=== PATIENT | male | born 1960 | race African-American/Black ===

== ENCOUNTER 2017-08-29 16:52 | Inpatient (IN) | payer MEDICARE, MEDICAID ==
[~2017-08-29] VITALS: Ht 172.7 cm; Wt 63.5 kg
[~2017-08-29 16:52] MED LIST: AZIT500T PO; CIPR-263 PO; EMTR1TAB6 PO; LEUC5TAB PO; LEVO25TA7 PO; METO25TA20 PO; PYRI25TA PO; SUCR1ORA6 GT; SULF500T6 PO
--- NOTE | 2017-08-29 16:53 | NUR ---
ADELIA FROM [facility] DT CHEST PAIN THE WHOLE DAY, 12/22, NON RADIATING. PATIENT NOTED TACHY ON TELE MONITOR. PATIENT IS AWAKE, IN NO DISTRESS. SKIN IS WARM TO TOUCH AND NON DIAPHORETIC. PATIENT IS AFEBRILE. CONNECTED PT TO TELE MONITOR. VSS
[2017-08-29] MEDS ORDERED: HYDROMORPHONE INJ 2 MG/ML DISP.SYRIN IV ONE (17:30)
[2017-08-29] MEDS ORDERED: IV NS 0.9% 500 ML BAG IV ONE (17:30)
--- NOTE | 2017-08-29 17:30 | NUR ---
UNABLE TO INSERT IV LINE. AWARE. TO CALL [facility]ICCLINE NURSES
--- NOTE | 2017-08-29 17:36 | NUR ---
UNABLE TO ESTABLISH PIV, CURTIS PARKS CALLED FOR A MIDLINE OR PICC LINE
[2017-08-29] MEDS ORDERED: EMTR1TAB12 PO (17:37)
[2017-08-29] MEDS ORDERED: DARU800T2 PO (17:37)
[2017-08-29] MEDS ORDERED: FURO-144 PO (17:37)
[2017-08-29] MEDS ORDERED: HYDR-3974 PO (17:37)
[2017-08-29] MEDS ORDERED: ASPI-1169 PO (17:37)
[2017-08-29] MEDS ORDERED: NA P133E RC (17:37)
[2017-08-29] MEDS ORDERED: PANT40TA2 PO (17:37)
[2017-08-29] MEDS ORDERED: BISA10SU8 RC (17:37)
[2017-08-29] MEDS ORDERED: ACET-868 PO (17:37)
[2017-08-29] MEDS ORDERED: LISI10TA5 PO (17:37)
[2017-08-29] MEDS ORDERED: CARV3.12 PO (17:37)
[2017-08-29] MEDS ORDERED: MAGN400O6 PO (17:37)
[2017-08-29] MEDS ORDERED: HYDROMORPHONE INJ 0.5 MG/0.5 ML SYRINGE ONE (18:17)
--- NOTE | 2017-08-29 18:43 | NUR ---
KIMBERLEY KUNZ, SISTER, , PLEASE CALL HER ON ANY CHANGE IN PT'S CONDITION.
--- NOTE | 2017-08-29 18:55 | NUR ---
MD SCHMIDT AT BEDSIDE FOR CENTRAL LINE INSERTION
--- NOTE | 2017-08-29 19:30 | NUR ---
PER DR HOWE, RIGHT FEMORAL TLC IS READY FOR USE. BLOOD SAMPLES TAKEN ASEPTICALLY AND NARENDRA FROM LAB PICKED UP SAMPLES.
[2017-08-29 19:40] LABS: BASOPHILS # (AUTO) 0.2 /CMM (0.0-0.2); BASOPHILS % (AUTO) 1.1 % (0.0-2.0); EOSINOPHILS % (AUTO) 0.1 % (0.0-6.0); HEMATOCRIT 38 % (39-51); HEMOGLOBIN 13.1 g/dL (13.5-17.5); LYMPHOCYTES # (AUTO) 1.3 /CMM (0.8-4.8); LYMPHOCYTES % (AUTO) 9.3 % (20.0-44.0); MEAN CORPUSCULAR HEMOGLOBIN 31 PG (26.0-33.0); MEAN CORPUSCULAR HGB CONC 35 g/dl (31.0-36.0); MEAN CORPUSCULAR VOLUME 90 fL (80-96); MONOCYTES # (AUTO) 0.1 /CMM (0.1-1.30); NEUTROPHILS # (AUTO) 12.5 /CMM (1.8-8.9); NEUTROPHILS % (AUTO) 88.5 % (43.0-81.0); PLATELET COUNT (AUTO) 228 /CMM (150-450); RDW COEFFICIENT OF VARIATION 17.1 (11.5-15.0); RED BLOOD CELL COUNT(AUTO) 4.16 MIL/uL (4.5-6.0); WHITE BLOOD COUNT (AUTO) 14.1 K/uL (4.3-11.0)
[2017-08-29 19:47] LABS: CALCIUM, SERUM 8.7 mg/dL (8.5-10.1); CREATININE 2.5 mg/dL (0.6-1.3); POTASSIUM 3.7 mmol/L (3.5-5.1)
[2017-08-29 19:50] LABS: INR 1.01 (0.85-1.15)
[2017-08-29 19:56] LABS: TROPONIN I 0.286 ng/mL (0.00-0.056)
[2017-08-29] MEDS ORDERED: PIPERACILLIN /TAZOBACTAM 3.375 G VIAL IV ONE (19:59)
[2017-08-29] MEDS ORDERED: VANCOMYCIN 1 GM VIAL ONE ×2 (19:59→20:37)
[2017-08-29] MEDS ORDERED: PIPERACILLIN /TAZOBACTAM 3.375 G in IV D5W 50 ML IV ONE (20:00)
[2017-08-29] MEDS ORDERED: VANCOMYCIN 1 GM in IV D5W 250 ML IV ONE (20:00)
[2017-08-29] MEDS ORDERED: IV NS 0.9% 1,000 ML BAG IV ONE (20:00)
[2017-08-29 20:25] LABS: ALANINE AMINOTRANSFERASE 19 U/L (12-78); ALBUMIN 3.2 g/dL (3.4-5.0); ALKALINE PHOSPHATASE 135 U/L (46-116); ASPARTATE AMINOTRANSFERASE 37 U/L (15-37); BILIRUBIN,DIRECT 0.2 mg/dL (0.0-0.2); BILIRUBIN,TOTAL 0.5 mg/dL (0.2-1.0); TOTAL PROTEIN, SERUM 7.3 g/dL (6.4-8.2)
[2017-08-29] MEDS ORDERED: ASPIRIN 81 MG TAB.CHEW PO ONE (20:30)
[2017-08-29] MEDS ORDERED: NOREPINEPHRINE 4 MG/4 ML AMPUL IV ONE (20:37)
--- NOTE | 2017-08-29 20:40 | NUR ---
AFTER NS BOLUS WITH USE OF PRESSURE BAG, BP IS 88/45. NOTIFIED DR WOODS. DR DARLING ASSESSED PATIENT, AND RECEIVED ORDERS TO START LEVOPHED DRIP.
[2017-08-29] MEDS ORDERED: ASPIRIN 81 MG TAB.CHEW ONE (20:44)
[2017-08-29] MEDS ORDERED: NOREPINEPHRINE 8 MG in IV D5W 500 ML IV PRN (21:00)
[2017-08-29 21:18] LABS: APPEARANCE,URINE Slightly Cloudy (CLEAR); BILIRUBIN,URINE Negative (NEGATIVE); BLOOD, URINE Trace-lysed Ery/uL (NEGATIVE); COLOR,URINE Yellow (YELLOW); KETONES,URINE Negative (NEGATIVE); LEUKOCYTE ESTERASE ,URINE Trace (NEGATIVE); NITRITE, URINE Negative (NEGATIVE); PROTEIN,URINE 100 mg/dl (NEGATIVE); UGLUCOSE Negative (NEGATIVE); UROBILINOGEN,URINE 0.2 EU/dL (0.2)
--- NOTE | 2017-08-29 21:18 | NUR ---
back from ct.
[2017-08-29 21:29] LABS: BACTERIA,URINE Few /HPF (None Seen); HYALINE CASTS, URINE Rare /LPF (None Seen); MUCUS,URINE Rare /LPF (None Seen); SQUAMOUS EPITHELIAL CELL,UR Moderate /HPF (None Seen)
[2017-08-29] MEDS ORDERED: IV NS 0.9% 1,000 ML IV PRN (22:11)
[2017-08-29] MEDS ORDERED: MAGNESIUM HYDROXIDE 30 ML UDC PO PRN (22:30)
[2017-08-29] MEDS ORDERED: MAG HYDROX/AL HYDROX/SIMETH 30 ML UDC PO PRN (22:30)
[2017-08-29] MEDS ORDERED: HEPARIN INFUSION/D5W 500 ML IV PRN (22:30)
[2017-08-29] MEDS ORDERED: NA PHOS,M-B/NA PHOS,DI-BA 1 EA ENEMA RC PRN (22:30)
[2017-08-29] MEDS ORDERED: ONDANSETRON HCL/PF 4 MG/2 ML VIAL IVP PRN (22:30)
[2017-08-29] MEDS ORDERED: ACETAMINOPHEN 325 MG TABLET PO PRN (22:30)
[2017-08-29] MEDS ORDERED: HYDROCODONE/APAP 5/325MG 1 EACH TABLET PO PRN (22:30)
[2017-08-29] MEDS ORDERED: BISACODYL SUPP (10 MG) 10 MG/SUPP.RECT SUPP.RECT RC PRN (22:30)
[2017-08-29] MEDS ORDERED: Z GUARD REMEDY 2 OZ OINT TP PRN (22:30)
--- NOTE | 2017-08-29 23:13 | NUR ---
ICU 257
--- NOTE | 2017-08-29 23:18 | NUR ---
REPORT GIVEN TO MOSES CHEN FOR ICU ADMISSION AND SEBASTIEN.
--- NOTE | 2017-08-29 23:45 | NUR ---
ICU/RN- ADMITTED THIS 57 Y/O MALE FROM ER BY CHRISTELLE, ACCOMPANIED BY ER STAFF, ON CONTINUOUS EKG MONITORING.NURSING DIAGNOSIS:INFECTION R/T DIAGNOSIS OF SEPSIS, ROUTINE ICU ADMISSION CARE INITIATED. ON LEVOPHED DRIP AT 3MCG/MIN. PER PROTOCOL. BP-89/44, HR-109/MIN, , BREATHING SPONTANEOUSLY +TO ROOM AIR W/ O2 SUPPORT OF 2L/NC, SATS.-97%.
--- NOTE | 2017-08-29 23:51 | NUR ---
TRANSFERRED PATIENT TO ICU FLOOR VIA ALS PROTOCOL, NO INCIDENT NOTED.
[2017-08-30] VITALS (72 sets, daily range): BP systolic 55–168; BP diastolic 24–113
--- NOTE | 2017-08-30 | NUR ---
ICU/RN- SPOKE TO ACNP Chaka ROWLEY, REGARDING VQ SCAN, REGARDING PT. STABLE TO GO FOR THE PROCEDURE. WILL RADIAL DRILL OPERATOR PT. TO CVPMPER PROTOCOL.
[2017-08-30] MEDS ORDERED: HEPARIN INFUSION/D5W 500 ML IV ONE (00:16)
--- NOTE | 2017-08-30 00:30 | NUR ---
ICU/RN- DISTAL PORT OF RIGHT FEMORAL TL HOOKED UP TO PRESSURIZED NS 500ML W/ 300HG, W/ GOOD WAVEFORM, CALIBRATED AND ZEROED W/ INITIAL READING OF 7, DOCUMENTED.
--- NOTE | 2017-08-30 00:41 | NUR ---
ICU/RN- ABGS DONE BY RT W/ RESULTS PH-7.41, PCO2-28.2,P02-101.7,HCO3-17.5, DOCUMENTED, WILL CONTINUE TO MONITOR PT. CLOSELY.
--- NOTE | 2017-08-30 00:51 | NUR ---
ICU/RN- HEPARIN DRIP INIYIATED PER [facility] PROTOCOL PER C ROWLEY ACNP ORDER. WILL MONITOR PT. PTT PER PROTOCOL.
[2017-08-30 00:54] LABS: ABG BASE EXCESS -5.8 mmol/L; ABG PCO2 28.2 mmHg (35.0-45.0); ABG PO2 101.7 mmHg (75.0-100.0); AaDO2 64.7 mmHg; COHb 0.3 % (0.5-1.5); MetHb 0.4 % (0.0-1.5); O2Hb 96.3 % (94.0-97.0); SITE, ABG Left Radial; VENT MODE, BG 2L NC
[2017-08-30] MEDS ORDERED: HEPARIN SODIUM, PORCINE 5000 UNITS/1 ML VIAL ONE (00:59)
[2017-08-30] MEDS ORDERED: HEPARIN SODIUM, PORCINE 5000 UNITS/1 ML VIAL IV ONE (01:00)
[2017-08-30] MEDS ORDERED: HEPARIN SODIUM, PORCINE 1000 UNIT/1 ML VIAL IV ONE (01:00)
[2017-08-30] MEDS: MORPHINE SULFATE INJ 2 MG/ML DISP.SYRIN IV PRN ×4 (01:08→08:12)
--- NOTE | 2017-08-30 01:22 | NUR ---
ICU/RN- PT. TRANSPORTED TO RADIOLOGY FOR LUNG PERFUSION SCAN PER ACLS PROTOCOL TO R/O PE, ON CONTINUOUS EKG MONITORING, ACCOMPANIED BY RN,SAFETY AND SECURITY MANAGER AND STRAND BUNCHER FINE WIRE.
--- NOTE | 2017-08-30 02:35 | NUR ---
ICU/RN- ABLE TO DO THE VENTILATION PART OF THE VQ SCAN, NOT THE PERFUSION PART, PT. STARTED, GETTING PANICKY, SCREMING AND HITTING RN AND TECH IN SPITE OF EXPLAINING THE IMPORTANCE OF THE VQ SCAN,PT. AGREED TO DO THE PERFUSION PART LATER IN THE DAY.PT. TRANSPORTED BACK TO ROOM PER PROTOCOL.
[2017-08-30] MEDS ORDERED: PIPERACILLIN /TAZOBACTAM 2.25 G VIAL IV ONE (05:49)
[2017-08-30] MEDS: PIPERACILLIN /TAZOBACTAM 2.255 G in IV D5W 50 ML IV SCH ×4 (06:13→23:29)
--- NOTE | 2017-08-30 06:15 | NUR ---
ICU/RN- CALM, ASLEEP, AROUSABLE, DENIES ANY DISCOMFORT, REMAINS ON LEVOPHED DRIP, CONTINUE TO WEAN TOLERATED.
[2017-08-30] MEDS ORDERED: NOREPINEPHRINE 8 MG in IV D5W 500 ML IV PRN (06:30)
[2017-08-30 07:01] LABS: BASOPHILS % (AUTO) 0.2 % (0.0-2.0); HEMATOCRIT 31 % (39-51); HEMOGLOBIN 10.5 g/dL (13.5-17.5); LYMPHOCYTES # (AUTO) 1.5 /CMM (0.8-4.8); LYMPHOCYTES % (AUTO) 12.6 % (20.0-44.0); MEAN CORPUSCULAR HEMOGLOBIN 32 PG (26.0-33.0); MEAN CORPUSCULAR HGB CONC 34 g/dl (31.0-36.0); MEAN CORPUSCULAR VOLUME 92 fL (80-96); MONOCYTES # (AUTO) 0.7 /CMM (0.1-1.30); MONOCYTES % (AUTO) 5.6 % (2.0-12.0); NEUTROPHILS # (AUTO) 9.9 /CMM (1.8-8.9); NEUTROPHILS % (AUTO) 81.6 % (43.0-81.0); PLATELET COUNT (AUTO) 158 /CMM (150-450); RDW COEFFICIENT OF VARIATION 18.5 (11.5-15.0); RED BLOOD CELL COUNT(AUTO) 3.33 MIL/uL (4.5-6.0); WHITE BLOOD COUNT (AUTO) 12.2 K/uL (4.3-11.0)
[2017-08-30 07:15] LABS: CALCIUM, SERUM 7.6 mg/dL (8.5-10.1); CREATININE 1.7 mg/dL (0.6-1.3); MAGNESIUM 1.4 mg/dL (1.8-2.4); PHOSPHORUS 3.9 mg/dL (2.5-4.9); POTASSIUM 3.3 mmol/L (3.5-5.1)
[2017-08-30 07:22] LABS: TROPONIN I 0.161 ng/mL (0.00-0.056)
[2017-08-30 07:27] LABS: THYROID STIMULATING HORMONE 0.886 uIU/mL (0.358-3.74)
[2017-08-30] MEDS: ASPIRIN 81 MG TAB.CHEW PO SCH (08:11)
[2017-08-30] MEDS ORDERED: FEE PK DOSING 1 MIN EA MC ONE (08:19)
--- NOTE | 2017-08-30 08:45 | NUR ---
ICU/RN: Dr Chan at bedside; updated on overnight events, pt on RA denies SOB, c/o CP 8-04/23 sternal and non-radiating asking for prn morphine around the clock. Pt refuses perfusion scan, PTT results reece DELACRUZ with orders to DC heparin drip. 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 Pt in agreement with plan. rural sociologist aware.
[2017-08-30] MEDS: EMTRICITABINE/TENOFOVIR 1 TAB PO SCH ×2 (09:00→17:13)
[2017-08-30] MEDS ORDERED: PANTOPRAZOLE 40 MG VIAL IV SCH (09:00)
[2017-08-30] MEDS: POTASSIUM CHLORIDE 20 MEQ TAB.PRT.SR PO SCH ×2 (10:08→10:39)
[2017-08-30] MEDS ORDERED: ACETAMINOPHEN 325 MG TABLET PO SCH (10:30)
[2017-08-30] MEDS: ACETAMINOPHEN 325 MG TABLET PO SCH ×3 (10:39→23:29)
[2017-08-30] MEDS ORDERED: POTASSIUM CHLORIDE 20 MEQ TAB.PRT.SR PO SCH (11:00)
[2017-08-30] MEDS: Magnesium 1GM/D5W 100ML PREMIX 100 ML IV SCH ×2 (11:44→12:56)
[2017-08-30] MEDS: VANCOMYCIN 0.75 GM in IV D5W 250 ML IV SCH ×2 (11:44→20:18)
[2017-08-30] MEDS: oxyCODONE IR immediate release 5 MG PO PRN (12:24)
--- NOTE | 2017-08-30 16:00 | NUR ---
ICU/RN: Pt's sister at bedside; per pt, "she will garbage pick up man my meds from [facility] and bring it tonight or early tomorrow morning at the latest."
[2017-08-30] MEDS: IV NS 0.9% 1,000 ML IV PRN (16:07)
--- NOTE | 2017-08-30 18:00 | NUR ---
ICU/RN: Pt requested prune juice with dinner; pt c/o constipation. SBP within parameters. Will cont to monitor pt
--- NOTE | 2017-08-30 19:30 | NUR ---
WARD SERVICE SUPERVISOR: RECEIVED PT A/O X 3. ON ROOM AIR WT NO ACUTE DISTRESS. NO C/O PAIN OR EVIDENCE OF DISCOMFORT AT THIS TIME. SR ON BOX REPAIRER. RIGHT FEMORAL TLC INFUSING NS AT 125ML/HR AND LEVOPHED AT 2MCG/MIN FOR BP SUPPORT. HOB ELEVATED AT 35 DEGREES. SAFETY PRECAUTION NOTED AT ALL TIMES. CALL LIGHT KEPT WITHIN REACH. WILL CONTINUE TO MONITOR.
[2017-08-31] VITALS (36 sets, daily range): BP systolic 85–188; BP diastolic 23–127
[2017-08-31] MEDS: oxyCODONE IR immediate release 5 MG PO PRN ×3 (01:58→20:06)
[2017-08-31] MEDS: IV NS 0.9% 1,000 ML IV PRN (02:30)
[2017-08-31] MEDS: IV NS 0.9% 500 ML BAG IV PRN (04:14)
[2017-08-31 05:28] LABS: BASOPHILS % (AUTO) 0.4 % (0.0-2.0); EOSINOPHILS % (AUTO) 0.4 % (0.0-6.0); HEMATOCRIT 26 % (39-51); HEMOGLOBIN 8.7 g/dL (13.5-17.5); LYMPHOCYTES # (AUTO) 1.3 /CMM (0.8-4.8); LYMPHOCYTES % (AUTO) 20.3 % (20.0-44.0); MEAN CORPUSCULAR HEMOGLOBIN 32 PG (26.0-33.0); MEAN CORPUSCULAR HGB CONC 34 g/dl (31.0-36.0); MEAN CORPUSCULAR VOLUME 92 fL (80-96); MONOCYTES # (AUTO) 0.3 /CMM (0.1-1.30); MONOCYTES % (AUTO) 4.7 % (2.0-12.0); NEUTROPHILS # (AUTO) 4.9 /CMM (1.8-8.9); NEUTROPHILS % (AUTO) 74.2 % (43.0-81.0); PLATELET COUNT (AUTO) 121 /CMM (150-450); RDW COEFFICIENT OF VARIATION 18.7 (11.5-15.0); RED BLOOD CELL COUNT(AUTO) 2.78 MIL/uL (4.5-6.0); WHITE BLOOD COUNT (AUTO) 6.6 K/uL (4.3-11.0)
[2017-08-31 05:33] LABS: ALBUMIN 2.3 g/dL (3.4-5.0); BILIRUBIN,TOTAL 0.2 mg/dL (0.2-1.0); CALCIUM, SERUM 8.1 mg/dL (8.5-10.1); CREATININE 1.1 mg/dL (0.6-1.3); PHOSPHORUS 2.5 mg/dL (2.5-4.9); POTASSIUM 3.7 mmol/L (3.5-5.1); TOTAL PROTEIN, SERUM 5.7 g/dL (6.4-8.2); TROPONIN I 0.136 ng/mL (0.00-0.056)
[2017-08-31] MEDS: PIPERACILLIN /TAZOBACTAM 2.255 G in IV D5W 50 ML IV SCH ×4 (06:21→23:26)
[2017-08-31] MEDS: ACETAMINOPHEN 325 MG TABLET PO SCH ×4 (06:24→23:33)
--- NOTE | 2017-08-31 06:50 | NUR ---
BRIQUETTING MACHINE OPERATOR: NO SIGNIFICANT SEBASTIEN DURING THE SHIFT. LEVOPHED OFF AT 2AM. NO ACUTE DISTRESS, NO C/O PAIN AT THIS TIME. HAD 2 EPISODES OF SMALL BOWEL MOVEMENT DURING THE SHIFT. GOOD SKIN CARE RENDERED. ALL NEEDS MET. CALL LIGHT KEPT WITHIN REACH.
[2017-08-31 07:13] LABS: *BASOS 0 % (Not Estab.); *COMMENTS Note: (.); *EOS 0 % (Not Estab.); *EOS, ABSOLUTE 0.1 x10E3/uL (0.0-0.4); *HCT 35.6 % (37.5-51.0); *HGB 11.4 g/dL (13.0-17.7); *IMMATURE GRANULOCYTES 0 % (Not Estab.); *LYMPHOCYTES 12 % (Not Estab.); *LYMPHS, ABSOLUTE 1.5 x10E3/uL (0.7-3.1); *MCH 30.6 pg (26.6-33.0); *MCV 95 fL (79-97); *MONOCYTES 6 % (Not Estab.); *MONOS, ABSOLUTE 0.8 x10E3/uL (0.1-0.9); *NEUTROPHILS 82 % (Not Estab.); *NEUTROPHILS, ABSOLUTE 10.7 x10E3/uL (1.4-7.0); *PLT 172 x10E3/uL (150-379); *RBC 3.73 x10E6/uL (4.14-5.80); *RDW 18.2 % (12.3-15.4)
--- NOTE | 2017-08-31 07:15 | NUR ---
ICU/RN: Pt received in bed A&Ox4, breathing even and unlabored on RA. R TLC with good blood return, flushed, IVF infusing well. CVP calibrated with good waveform. Off pressors since 0200 per NOC RN.
[2017-08-31] MEDS: ASPIRIN 81 MG TAB.CHEW PO SCH (08:43)
--- NOTE | 2017-08-31 08:45 | NUR ---
ICU/RN: Pt c/o severe midsternal chest pain acute and non-radiating in nature similar to admission to hospital. Administered oxycontin prn as ordered. Will reassess effectiveness accordingly.
[2017-08-31] MEDS: VANCOMYCIN 0.75 GM in IV D5W 250 ML IV SCH ×3 (09:23→21:32)
--- NOTE | 2017-08-31 10:00 | NUR ---
ICU/RN: Pt noted with 1 small BM, pt requesting Bisacodyl at later time. Per pt, pain management effective.
[2017-08-31] MEDS: EMTRICITABINE/TENOFOVIR 1 TAB PO SCH (11:16)
--- NOTE | 2017-08-31 11:30 | NUR ---
ICU/RN: Pt transferred to [facility] 324-2 in stable condition, VSS, received at bedside by primary RN R TLC patent and intact. Placed on monitor. All belongings transferred with pt. Per pt, "My sister in law is coming, I'll tell her where I am so she can bring my meds."
--- NOTE | 2017-08-31 12:00 | NUR ---
AM RN NOTE Received patient from ICU at 1145 via w/c as accompanied by RN. Pt awake, A/O X4 verbally responsive able to make needs known. Resp even and non-labored. IV site on right femoral 3 lumen intact and patent. On tele monitor, SR 90's. Denies any pain at this time. Will continue to monitor.
[2017-08-31 13:54] LABS: *% CD 4 POS. LYMPH 11.1 % (30.8-58.5); *% CD 8 POS. LYMPH 33.9 % (12.0-35.5); *ABSOLUTE CD 4 HELPER 167 /uL (359-1519); *ABSOLUTE CD 8 SUPPRESSOR 509 /uL (109-897); *CD4/CD8 RATIO 0.33 (0.92-3.72)
--- NOTE | 2017-08-31 16:02 | NUR ---
AM RN NOTE Attempted to remove TLC as ordered by Dr. Maco Yeager but pt refused stated he is hard stick can they do it tomorrow. Notified Dr. Maco Yeager and per it is ok to keep the TLC today and will d/c tomorrow.
--- NOTE | 2017-08-31 18:29 | NUR ---
AM RN NOTE Pt resting in his bed no acute distress noted. TLC intact and patent. Will endorse care to next shift.
--- NOTE | 2017-08-31 19:30 | NUR ---
AGRICULTURAL SYSTEMS SPECIALIST NOTES PATIENT RECEIVED RESTING INSIDE ROOM, AWAKE, ALERT AND ORIENTED X 4, ABLE TO MAKE NEEDS KNOWN AND FOLLOW SIMPLE INSTRUCTIONS, PATIENT VERBALIZED HE PREFERS BEING CALLED "ZACHARIAH". BREATHING EVEN AND UNLABORED. NO SOB OR ACUTE DISTRESS AT THIS TIME. WILL CONTINUE TO MONITOR. BILATERAL UPPER SIDE RAILS UP AND LOCKED. BED LOCKED AND IN LOW POSITION. CALL LIGHT WITHIN EASY REACH.
--- NOTE | 2017-08-31 20:10 | NUR ---
MANAGER SCHOOL NOTES PATIENT WITH C/O PAIN ON CHEST WITH LEVEL OF 9/10. REQUESTED FOR OXYCODONE IR. GIVEN MEDICATION ORDERED PRN. NO ASE NOTED AT THIS TIME. WILL CONTINUE TO MONITOR
[2017-08-31] MEDS ORDERED: VANCOMYCIN 1 GM VIAL ONE ×2 (20:35→21:15)
[2017-09-01] VITALS: BP 122/70
[2017-09-01] MEDS: IV NS 0.9% 1,000 ML IV PRN (00:49)
[2017-09-01] MEDS: oxyCODONE IR immediate release 5 MG PO PRN ×4 (00:51→16:57)
--- NOTE | 2017-09-01 01:00 | NUR ---
MS CHEN NOTES PATIENT WITH COMPLAIN OF PAIN ON CHEST WITH LEVEL OF 10/10. CONTINUE ON TELE MONITOR, NO CHANGES IN RHYTHM. REQUESTED FOR OXYCODONE, GIVEN MEDICATION ORDERED. NO INCREASED SEDATION NOTED, NO ALLERGIC REACTION. WILL CONTINUE TO MONITOR Addendum: 09/01/17 at 0647 by REJI EVERETT RN MS TELE NOTES
[2017-09-01 04:00] VITALS: BP 122/75
[2017-09-01] MEDS: ACETAMINOPHEN 325 MG TABLET PO SCH ×4 (05:23→23:39)
[2017-09-01] MEDS: PIPERACILLIN /TAZOBACTAM 2.255 G in IV D5W 50 ML IV SCH ×4 (05:23→23:39)
--- NOTE | 2017-09-01 06:46 | NUR ---
TICKET SORTER NOTES PATIENT RESIDENT INSIDE ROOM, SLEEPING BUT EASILY AROUSABLE THROUGH VERBAL AND TACTILE STIMULI. PATIENT BREATHING EVEN AND UNLABORED. NO SOB OR ACUTE DISTRESS NOTED AT THIS TIME. PATIENT AFEBRILE, SKIN DRY AND WARM TO TOUCH. PATIENT DENIES ANY PAIN OR DISCOMFORT AT THIS TIME. NO CHANGES IN LOC NOTED. PATIENT REMAINS CALM AND RELAXED. VERBALIZED THAT HE WILL LET STAFF DC TLC ON LEFT FEMORAL IN AM. NO BLEEDING OR SWELLING NOTED AT THIS TIME. NO C/O WEAKNESS OR FATIGUE. NO SIGNIFICANT CHANGES NOTED AT THIS TIME. BED LOCKED AND IN LOW POSITION, BILATERAL UPPER SIDE RAILS UP AND LOCKED. CALL LIGHT PLACED WITHIN EASY REACH. WILL ENDORSE TO INCOMING SHIFT
--- NOTE | 2017-09-01 07:07 | NUR ---
INSURANCE TERRITORY MANAGER NOTES PATIENT WITH C/O PAIN ON CHEST WITH LEVEL OF 10/10. REQUESTED FOR OXYCODONE. GIVEN MEDICATION ORDERED. NO ASE OR ALLERGIC REACTION NOTED. WILL CONTINUE TO MONITOR
--- NOTE | 2017-09-01 07:20 | NUR ---
RN NOTES PT IS LAYING DOWN IN BED, RESTING COMFORTABLY. PT ON RA, RESPIRATIONS ARE EVEN AND UNLABORED. R FEMORAL IV LINE INTACT AND RUNNING NS @ 125 ML/HR. SAFETY MEASURES ARE IN PLACE, CALL LIGHT IS IN REACH. WILL CONTINUE TO MONITOR.
[2017-09-01 07:58] LABS: CALCIUM, SERUM 8.1 mg/dL (8.5-10.1); CREATININE 0.9 mg/dL (0.6-1.3); POTASSIUM 3.5 mmol/L (3.5-5.1)
[2017-09-01 08:00] VITALS: BP 100/50
[2017-09-01] MEDS: EMTRICITABINE/TENOFOVIR 1 TAB PO SCH (09:56)
[2017-09-01] MEDS: ASPIRIN 81 MG TAB.CHEW PO SCH (09:56)
--- NOTE | 2017-09-01 10:10 | NUR ---
RN NOTES CALLED PHARMACY TWICE TO DELIVER THE VANCOMYCIN DUE AT 0900. PHARMACY STATED THEY WILL BRING IT.
--- NOTE | 2017-09-01 10:40 | NUR ---
RN NOTES PT IS IN HER ROOM IN STABLE CONDITION. REPORT WAS GIVEN TO REMY CHEN FOR CONTINUITY OF CARE.
--- NOTE | 2017-09-01 10:41 | NUR ---
ms rn notes Transfer care from othr RN, patient in bed, no SOB or distress noted. No complaint of pain or discomfort, nor chest pain. Will continue to monitor accordingly.
[2017-09-01] MEDS: VANCOMYCIN 0.75 GM in IV D5W 250 ML IV SCH ×2 (10:52→20:31)
[2017-09-01] MEDS: IV NS 0.9% 500 ML BAG IV PRN (10:53)
[2017-09-01] MEDS ORDERED: AMIODARONE 150 MG in IV D5W 100 ML IV ONE (14:30)
[2017-09-01 16:00] VITALS: BP 112/67
--- NOTE | 2017-09-01 16:00 | NUR ---
ms return checker notes Maco Yeager came seen and examined the patient and patient verbalized palpitation and MD ordered to put patient on tele monitor and noted having afib with heart rate of 154. MD ordered amiodarone drip and to transfer care to SARAH. Report given to SARAH RN and made aware to continue care.
--- NOTE | 2017-09-01 16:30 | NUR ---
RN INITIAL NOTE PATIENT TRANSFERRED FROM MED SURG. AWAKE, ALERT AND ORIENTED. ABLE TO MAKE NEEDS KNOWN. AFIB ON TELE MONITOR. SKIN IS WARM AND DRY TO TOUCH. IV SITE FLUSHED, PATENT. SAFETY PRECAUTIONS IN PLACE, BED IN LOCKED, LOW POSITION WITH TWO SIDE RAILS UP. CALL LIGHT AND BELONGINGS WITHIN EASY REACH. WILL CONTINUE TO MONITOR.
[2017-09-01] MEDS: AMIODARONE 900 MG in IV D5W 482 ML IV PRN ×2 (17:22→23:35)
[2017-09-01 20:00] VITALS: BP 110/64
--- NOTE | 2017-09-01 20:04 | NUR ---
RN NOTES PATIENT IN BED, AWAKE WATCHING TV WITH NO DISTRESS NOTED. ROOM AIR TOLERATING WELL. ALERT AND ORIENTED. VERBALLY ABLE TO COMMUNICATE NEEDS. ON AMIODARONE DRIP, CONTINUOUS MONITORING DONE. VITAL SIGNS WNL. KEPT CLEAN AND DRY.
[2017-09-01] MEDS ORDERED: MORPHINE SULFATE INJ 4 MG/ML DISP.SYRIN ONE (21:34)
--- NOTE | 2017-09-01 21:35 | NUR ---
RN NOTES MORPHINE 2MG UNAVAILABLE IN OMNICELL, OVERRIDE PERFORMED BY CHARGE NURSE PARADISE, WITNESSED WITH NURSE NGUYỄN
[2017-09-01] MEDS: MORPHINE SULFATE INJ 2 MG/ML DISP.SYRIN IV PRN (21:40)
[2017-09-02] VITALS: BP 118/55
[2017-09-02 04:00] VITALS: BP 127/82
[2017-09-02] MEDS: oxyCODONE IR immediate release 5 MG PO PRN ×5 (04:42→21:43)
[2017-09-02] MEDS: ACETAMINOPHEN 325 MG TABLET PO SCH ×3 (05:11→17:38)
[2017-09-02] MEDS: PIPERACILLIN /TAZOBACTAM 2.255 G in IV D5W 50 ML IV SCH ×2 (06:18→11:55)
--- NOTE | 2017-09-02 06:19 | NUR ---
RN NOTES IN BED, AWAKE. STILL COMPLAINING OF PAIN. OXYCODONE, TYLENOL, MORPHINE ADMINISTERED. ALERT AND ORIENTED. NEEDS ATTENDED. WILL ENDORSE TO AM SHIFT FOR CONTINUITY OF CARE.
[2017-09-02 06:58] LABS: BASOPHILS % (AUTO) 0.3 % (0.0-2.0); EOSINOPHILS # (AUTO) 0.1 /CMM (0.0-0.7); EOSINOPHILS % (AUTO) 0.6 % (0.0-6.0); HEMATOCRIT 29 % (39-51); HEMOGLOBIN 9.9 g/dL (13.5-17.5); LYMPHOCYTES % (AUTO) 19.7 % (20.0-44.0); MEAN CORPUSCULAR HEMOGLOBIN 31 PG (26.0-33.0); MEAN CORPUSCULAR HGB CONC 34 g/dl (31.0-36.0); MEAN CORPUSCULAR VOLUME 92 fL (80-96); MONOCYTES # (AUTO) 0.7 /CMM (0.1-1.30); MONOCYTES % (AUTO) 6.9 % (2.0-12.0); NEUTROPHILS # (AUTO) 7.3 /CMM (1.8-8.9); NEUTROPHILS % (AUTO) 72.5 % (43.0-81.0); PLATELET COUNT (AUTO) 167 /CMM (150-450); RDW COEFFICIENT OF VARIATION 18.4 (11.5-15.0); RED BLOOD CELL COUNT(AUTO) 3.14 MIL/uL (4.5-6.0); WHITE BLOOD COUNT (AUTO) 10.1 K/uL (4.3-11.0)
[2017-09-02 07:52] LABS: CALCIUM, SERUM 8.4 mg/dL (8.5-10.1); MAGNESIUM 1.4 mg/dL (1.8-2.4); PHOSPHORUS 2.5 mg/dL (2.5-4.9); POTASSIUM 3.7 mmol/L (3.5-5.1)
[2017-09-02 08:00] VITALS: BP 130/92
--- NOTE | 2017-09-02 08:00 | NUR ---
TD/RN AM SHIFT INITIAL NOTES RECEIVED PT AWAKE SITTING IN BED, A/O X 4, COMPLAINT OF CHEST PAIN 01/21. ON ROOM AIR SATURATING @ 98%, ON TELE WITH UNCONTROLLED A-FIB, HR 86. WITH ON GOING IV INFUSION OF AMIODARONE 0.5MCG/MIN @ 16.67ML/HR, IV SITE PATENT WITH NO S/S OF INFECTION. SCHEDULED AM MEDS TO BE GIVEN. CL WITHIN REACHED AND SAFETY MAINTAINED. ON GOING MONITORING.
[2017-09-02] MEDS: EMTRICITABINE/TENOFOVIR 1 TAB PO SCH (08:32)
[2017-09-02] MEDS: ASPIRIN 81 MG TAB.CHEW PO SCH (08:32)
[2017-09-02] MEDS: VANCOMYCIN 0.75 GM in IV D5W 250 ML IV SCH ×2 (08:33→21:43)
[2017-09-02] MEDS ORDERED: IV NS 0.9% 250 ML BAG IV ONE (09:00)
[2017-09-02] MEDS ORDERED: ENOXAPARIN SODIUM 80 MG/0.8 ML DISP.SYRIN SQ SCH (11:00)
[2017-09-02 11:48] LABS: TROPONIN I 0.263 ng/mL (0.00-0.056)
[2017-09-02] MEDS: Magnesium 1GM/D5W 100ML PREMIX 100 ML IV SCH ×3 (11:55→17:39)
[2017-09-02] MEDS: DIGOXIN INJ 0.5 MG/2 ML AMPUL IV SCH ×3 (11:57→23:52)
[2017-09-02 12:00] VITALS: BP 135/80
--- NOTE | 2017-09-02 12:00 | NUR ---
TD/RN NOON ROUNDS NO ACUTE CHANGE OF CONDITION. PT WOULD COMPLAINT OF CHEST PAIN D/T TO THE SURGICAL SITE (CHEST) PER PT IT HURTS WHEN HE BREATHES. MONITORING.
[2017-09-02 16:00] VITALS: BP 127/81
[2017-09-02] MEDS ORDERED: RITO100T PO (16:11)
[2017-09-02] MEDS ORDERED: WARFARIN SODIUM 5 MG TABLET PO SCH (17:00)
--- NOTE | 2017-09-02 17:30 | NUR ---
TD/RN NO RHYTHM CONVERSION AMIODARONE DRIP COMPLETED, NOTED NO CONVERSION OF RHYTHM TO SINUS. PT TO START AMIODARONE ORALLY ORDERED. MONITORING.
[2017-09-02] MEDS: AMIODARONE HCL 200 MG TABLET PO SCH (17:39)
[2017-09-02] MEDS: RITONAVIR 100 MG CAPSULE PO SCH (17:57)
--- NOTE | 2017-09-02 18:00 | NUR ---
TD/RN CONSENT OBTAINED CONSENT OBTAINED FROM PT FOR CT GUIDED BIOPSY OF LEFT LUNG. CONSENTS PLACED ON CHART.
[2017-09-02 20:00] VITALS: BP 127/67
--- NOTE | 2017-09-02 20:19 | NUR ---
TD/RN AM SHIFT END NOTES ALL NEEDS MET. NO ACUTE CHANGE OF CONDITION NOTED DURING THE SHIFT. PT STARTED ORAL AMIODARONE, PT'S HEART RHYTHM HAS NOT CONVERTED TO SINUS AFTER COMPLETION OF AMIODARONE DRIP. PT ENDORSED TO PM NURSE TO CONTINUE CARE, ALSO ENDORSED TO COMPLETE PRE-OP CHECK LIST FOR LUNG BIOPSY TOMORROW. CL WITHIN REACHED AND SAFETY MAINTAINED.
--- NOTE | 2017-09-02 20:30 | NUR ---
SARAH RN NOTE PT IN BED AWAKE. A/O X 4, NO DISTRESS OR DISCOMFORT NOTED. DENIES PAIN AT THIS TIME. ON TELE A FIB CONTROLLED HR 95. RT FEMORAL TRIPLE LUMEN CATH INTACT AND PATENT. SIDE RAILS UP X 2 AND CALL LIGHT WITHIN REACH. VSS. CONTINUE TO MONITOR HIM.
[2017-09-02] MEDS: PIPERACILLIN /TAZOBACTAM 3.375 G in IV D5W 50 ML IV SCH (21:01)
--- NOTE | 2017-09-02 21:44 | NUR ---
SARAH RN NOTE PT C/O CHEST PAIN DULL ACHING, 8/10, OXY IR 10 MG PO GIVEN. CONTINUE TO MONITOR. VSS.
--- NOTE | 2017-09-02 22:44 | NUR ---
SARAH RN NOTE PAIN SUBSIDED 08/24. PT FALLING ASLEEP, CONTINUE TO MONITOR HIM.
[2017-09-03] VITALS (7 sets, daily range): BP systolic 113–148; BP diastolic 56–78
[2017-09-03] MEDS: PIPERACILLIN /TAZOBACTAM 3.375 G in IV D5W 50 ML IV SCH ×5 (01:20→23:37)
[2017-09-03] MEDS: oxyCODONE IR immediate release 5 MG PO PRN ×3 (04:40→17:55)
--- NOTE | 2017-09-03 04:40 | NUR ---
SARAH RN NOTE PT WOKE UP AND C/O PAIN IN MIDCHEST 02/21, OXY IR 10 MG PO GIVEN PER PT'S REQUEST. VSS. CONTINUE MONITOR HIM. PT IS NPO EXCEPT MEDS.
[2017-09-03] MEDS: ACETAMINOPHEN 325 MG TABLET PO SCH ×5 (05:37→23:37)
[2017-09-03 06:21] LABS: BASOPHILS % (AUTO) 0.2 % (0.0-2.0); EOSINOPHILS % (AUTO) 0.5 % (0.0-6.0); HEMATOCRIT 27 % (39-51); HEMOGLOBIN 9.4 g/dL (13.5-17.5); LYMPHOCYTES # (AUTO) 1.3 /CMM (0.8-4.8); LYMPHOCYTES % (AUTO) 15.3 % (20.0-44.0); MEAN CORPUSCULAR HEMOGLOBIN 32 PG (26.0-33.0); MEAN CORPUSCULAR HGB CONC 34 g/dl (31.0-36.0); MEAN CORPUSCULAR VOLUME 93 fL (80-96); MONOCYTES # (AUTO) 0.8 /CMM (0.1-1.30); MONOCYTES % (AUTO) 8.8 % (2.0-12.0); NEUTROPHILS # (AUTO) 6.6 /CMM (1.8-8.9); NEUTROPHILS % (AUTO) 75.2 % (43.0-81.0); PLATELET COUNT (AUTO) 162 /CMM (150-450); RDW COEFFICIENT OF VARIATION 18.3 (11.5-15.0); RED BLOOD CELL COUNT(AUTO) 2.95 MIL/uL (4.5-6.0); WHITE BLOOD COUNT (AUTO) 8.8 K/uL (4.3-11.0)
--- NOTE | 2017-09-03 06:24 | NUR ---
SARAH RN NOTE PT IN BED AWAKE. NO DISTRESS OR DISCOMFORT NOTED, DENIES PAIN. PT IS NPO. RT FEMORAL TLC INTACT AND PATENT. SIDE RAILS UP X 3 AND CALL LIGHT WITHN REACH. WILL ENDORSE TO DAY SHIFT NURSE FOR CONTINUE TO CARE.
[2017-09-03 06:32] LABS: INR 1.14 (0.87-1.13)
[2017-09-03 06:34] LABS: ALBUMIN 2.4 g/dL (3.4-5.0); BILIRUBIN,TOTAL 0.4 mg/dL (0.2-1.0); CALCIUM, SERUM 8.2 mg/dL (8.5-10.1); MAGNESIUM 1.8 mg/dL (1.8-2.4); PHOSPHORUS 1.5 mg/dL (2.5-4.9); POTASSIUM 3.4 mmol/L (3.5-5.1); TOTAL PROTEIN, SERUM 6.2 g/dL (6.4-8.2)
[2017-09-03 06:35] LABS: TROPONIN I 0.229 ng/mL (0.00-0.056)
[2017-09-03] MEDS: ASPIRIN 81 MG TAB.CHEW PO SCH (07:58)
--- NOTE | 2017-09-03 08:00 | NUR ---
TD/RN AM SHIFT INITIAL NOTES RECEIVED PT AWAKE SITTING IN BED, A/O X 4, DENIES ANY SYMPTOMS AT THIS TIME, NO ACUTE CHANGE OF CONDITION. ON ROOM AIR SATURATING @ 95%, LUNG SOUNDS DIMINISHED NOTED WITH NON-PRODUCTIVE COUGH. ON TELE WITH CONTROLLED A-FIB, HR 96. CENTRAL ON TKO, PATENT WITH NO S/S OF INFECTION. PT ON NPO STATUS FOR LUNG BIOPSY SCHEDULED THIS MORNING. SCHEDULED AM MEDS TO BE GIVEN, ASPIRIN WILL BE HELD. PT IS COMFORTABLE, CL WITHIN REACHED AND SAFETY MAINTAINED. ON GOING MONITORING.
[2017-09-03] MEDS: VANCOMYCIN 0.75 GM in IV D5W 250 ML IV SCH ×2 (08:24→20:14)
[2017-09-03] MEDS: AMIODARONE HCL 200 MG TABLET PO SCH ×3 (08:25→17:53)
[2017-09-03] MEDS: RITONAVIR 100 MG CAPSULE PO SCH (08:25)
[2017-09-03] MEDS: EMTRICITABINE/TENOFOVIR 1 TAB PO SCH (08:25)
[2017-09-03] MEDS ORDERED: IV NS 0.9% 250 ML BAG IV ONE (10:00)
--- NOTE | 2017-09-03 11:30 | NUR ---
TD/RN LUNG BIOPSY - RESCHEDULED SPOKE TO DR. ACOSTA, IN FORMED ME THAT BIOPSY PROCEDURE IS RESCHEDULED FOR TOMORROW @ 9:00AM, PATIENT AND CHARGE NURSE MADE AWARE. PT BACK ON REGULAR DIET AND WILL BE PLACED ON NPO AFTER MIDNIGHT, HOLDING ANTI-CLOTTING MEDICATIONS. MONITORING CONTINUED.
[2017-09-03] MEDS ORDERED: POTASSIUM PHOSPHATE MM 7.5 MMOL in IV D5W 100 ML IV SCH ×2 (12:00→20:00)
--- NOTE | 2017-09-03 12:00 | NUR ---
TELE1/RN SINUS RHYTHM CONVERSION VERIFIED WITH TIMBER APPRAISER THAT PT'S HEART RHYTHM HAS CONVERTED TO SINUS RHYTHM, RHYTHM EVALUATED CONVERTED SINCE ABOUT MIDNIGHT LAST NIGHT. MONITORING CONTINUED.
[2017-09-03] MEDS: POTASSIUM CL. PREMIX PERIPHER. 50 ML IV SCH ×2 (15:46→17:52)
--- NOTE | 2017-09-03 17:00 | NUR ---
TELE1/RN AFTERNOON ROUNDS PM CARE PROVIDED. PT REMINDED THAT HE WILL BE PLACED NPO AFTER MIDNIGHT FOR LUNG BIOPSY IN THE MORNING. NO ACUTE CHANGE OF CONDITION NOTED AT THIS TIME. PM MEDS GIVEN. MONITORING CONTINUED.
--- NOTE | 2017-09-03 19:30 | NUR ---
PAINT POURER NOTES RECEIVED PT IN BED AWAKE, ALERT,VERBALLY RESPONSIVE, DENIES ANY PAIN OR DISCOMFORT AT THIS TIME.ON ROOM AIR, RESPIRATIONS EVEN, UNLABORED, NO APPARENT DISTRESS NOTED. SR 83.IV SITE INTACT, PATENT.CALL LIGHT WITHIN REACH.KEPT CLEAN AND COMFORTABLE, ATTENDED ALL NEEDS.WILL CONTINUE TO MONITOR ACCORDINGLY.
--- NOTE | 2017-09-03 19:35 | NUR ---
TELE1/RN AM SHIFT END NOTES ALL NEEDS MET. NO ACUTE CHANGE OF CONDITION DURING THE SHIFT. PT AWARE TO PLACE HIM ON NPO STATUS AFTER MIDNIGHT FOR SCHEDULED LUNG BIOPSY @ 9:00AM. ENDORSED TO PM NURSE TO CONTINUE CARE. CL WITHIN REACHED AND SAFETY MAINTAINED.
[2017-09-04] VITALS (12 sets, daily range): BP systolic 120–148; BP diastolic 72–86
[2017-09-04] MEDS: PIPERACILLIN /TAZOBACTAM 3.375 G in IV D5W 50 ML IV SCH ×4 (05:05→23:43)
[2017-09-04] MEDS: ACETAMINOPHEN 325 MG TABLET PO SCH ×4 (05:05→23:43)
--- NOTE | 2017-09-04 06:39 | NUR ---
MANAGER MECHANICAL CLOSING NOTES PT IN BED, RESTING COMFORTABLY, ON ROOM AIR, RESPIRATIONS EVEN, UNLABORED, NO APPARENT DISTRESS NOTED. NPO AFTER MIDNIGHT.SR 82. IV SITE RT FEMORAL INTACT, PATENT, DRESSING CHANGED. CALL LIGHT WITHIN REACH. KEPT CLEAN AND COMFORTABLE, ATTENDED ALL NEEDS. WILL CONTINUE TO MONITOR ACCORDINGLY.
--- NOTE | 2017-09-04 07:30 | NUR ---
CHARGE PREPARATION TECHNICIAN OPENING NOTES RECEIVED PATIENT IN BED RESTING, A/OX4. NO ACUTE DISTRESS, NO SOB. DENIES PAIN OR DISCOMFORT. IV SITE INTACT AND PATENT. KEPT PATIENT NPO ORDERED, CT GUIDED BIOPSY TODAY. SAFETY MEASURES INITIATED. BED IN LOCKED/LOW POSITION, SIDERAILS UPX2, CALL LIGHT IN REACH. WILL CONTINUE TO MONITOR ACCORDINGLY.
[2017-09-04 07:52] LABS: BASOPHILS % (AUTO) 0.3 % (0.0-2.0); EOSINOPHILS # (AUTO) 0.1 /CMM (0.0-0.7); HEMATOCRIT 29 % (39-51); HEMOGLOBIN 9.9 g/dL (13.5-17.5); LYMPHOCYTES % (AUTO) 12.3 % (20.0-44.0); MEAN CORPUSCULAR HEMOGLOBIN 32 PG (26.0-33.0); MEAN CORPUSCULAR HGB CONC 34 g/dl (31.0-36.0); MEAN CORPUSCULAR VOLUME 92 fL (80-96); MONOCYTES # (AUTO) 0.9 /CMM (0.1-1.30); MONOCYTES % (AUTO) 11.2 % (2.0-12.0); NEUTROPHILS # (AUTO) 5.9 /CMM (1.8-8.9); NEUTROPHILS % (AUTO) 75.2 % (43.0-81.0); PLATELET COUNT (AUTO) 177 /CMM (150-450); RDW COEFFICIENT OF VARIATION 18.4 (11.5-15.0); RED BLOOD CELL COUNT(AUTO) 3.12 MIL/uL (4.5-6.0); WHITE BLOOD COUNT (AUTO) 7.9 K/uL (4.3-11.0)
[2017-09-04 07:59] LABS: CALCIUM, SERUM 8.3 mg/dL (8.5-10.1); CREATININE 1.1 mg/dL (0.6-1.3); MAGNESIUM 1.7 mg/dL (1.8-2.4); PHOSPHORUS 2.1 mg/dL (2.5-4.9); POTASSIUM 3.2 mmol/L (3.5-5.1)
--- NOTE | 2017-09-04 08:45 | NUR ---
RN NOTES PATIENT WENT TO BIOPSY PICKED UP BY CAMERA MAKER.
[2017-09-04] MEDS: ASPIRIN 81 MG TAB.CHEW PO SCH (09:00)
[2017-09-04] MEDS ORDERED: NALOXONE PREFILLED SYRINGE 2 MG/2 ML SYRINGE IV ONE (09:00)
[2017-09-04] MEDS: AMIODARONE HCL 200 MG TABLET PO SCH ×3 (09:00→16:21)
[2017-09-04] MEDS ORDERED: MIDAZOLAM HCL 5MG/ML VIAL 25 MG/5 ML VIAL IV ONE (09:00)
[2017-09-04] MEDS: VANCOMYCIN 0.75 GM in IV D5W 250 ML IV SCH (09:00)
[2017-09-04] MEDS ORDERED: FENTANYL PF 250MCG/5ML AMPUL IV ONE (09:00)
--- NOTE | 2017-09-04 10:15 | NUR ---
RN NOTES PATIENT CAME BACK FROM BIOPSY. DIRECTOR OF INDUSTRIAL RELATIONS ON BEDSIDE FOR CONSCIOUS SEDATION, MEDICATIONS GIVEN BY DIRECTOR OF INDUSTRIAL RELATIONSPARESH. PER DIRECTOR OF INDUSTRIAL RELATIONS, ML=008/75, HR=90, R=24, AND TRISTIN SCORE= 10, BEFORE PATIENT LEFT CT SCAN. WILL MONITOR ACCORDINGLY.
[2017-09-04] MEDS: Magnesium 1GM/D5W 100ML PREMIX 100 ML IV SCH ×2 (11:09→13:28)
[2017-09-04] MEDS: POTASSIUM CHLORIDE 20 MEQ TAB.PRT.SR PO SCH ×3 (12:33→16:20)
[2017-09-04] MEDS: RITONAVIR 100 MG CAPSULE PO SCH (12:33)
[2017-09-04] MEDS: EMTRICITABINE/TENOFOVIR 1 TAB PO SCH (12:33)
[2017-09-04] MEDS: MORPHINE SULFATE INJ 4 MG/ML DISP.SYRIN IV PRN ×2 (13:37→18:56)
[2017-09-04] MEDS ORDERED: POTASSIUM CHLORIDE 20 MEQ TAB.PRT.SR PO SCH (14:15)
[2017-09-04] MEDS: oxyCODONE IR immediate release 5 MG PO PRN (16:53)
[2017-09-04] MEDS ORDERED: K PHOS NEUTRAL 250 MG TABLET PO ONE ×2 (18:30→19:00)
--- NOTE | 2017-09-04 19:25 | NUR ---
RN CLOSING NOTES NO SIGNIFICANT CHANGES IN PATIENT'S CONDITION. NO ACUTE DISTRESS, NO SOB NOTED. ALL NEEDS ATTENDED AND PROVIDED. ALL MEDS GIVEN ORDERED. SAFETY PRECAUTIONS INITIATED. BED IN LOW/LOCKED POSITION, SIDERAILS UP X2, CALL LIGHT IN REACH. ENDORSED TO NIGHT RN FOR SEBASTIEN.
[2017-09-04] MEDS: VANCOMYCIN 500 MG in IV D5W 100 ML IV SCH (21:26)
[2017-09-05] VITALS: BP 129/93
[2017-09-05 00:34] VITALS: BP 129/93
[2017-09-05 04:00] VITALS: BP 136/84
[2017-09-05] MEDS: PIPERACILLIN /TAZOBACTAM 3.375 G in IV D5W 50 ML IV SCH ×2 (05:14→11:51)
[2017-09-05] MEDS: ACETAMINOPHEN 325 MG TABLET PO SCH ×2 (05:14→11:45)
--- NOTE | 2017-09-05 05:55 | NUR ---
MS RN CLOSING NOTES PT IN BED, ALERT ET ORIENTED. RESPIRATIONS EVEN, UNLABORED, WITH O2 @6LPM VIA NC. VITAL SIGNS TABLE, AFEBRILE..RESTING COMFORTABLY, NO APPARENT DISTRESS NOTED. WITH IV SITE RT FEMORAL INTACT, PATENT, DRESSING CHANGED. ADMINISTERED ALL MEDS ORDERED. WITH VANCOMYCIN AND ZOSYN ANTIBIOTICS IVPB. CALL LIGHT WITHIN REACH. KEPT CLEAN AND COMFORTABLE, NEEDS ALL ATTENDED. . WILL CONTINUE TO MONITOR ACCORDINGLY.
[2017-09-05 06:37] LABS: CALCIUM, SERUM 8.3 mg/dL (8.5-10.1); PHOSPHORUS 2.5 mg/dL (2.5-4.9); POTASSIUM 3.4 mmol/L (3.5-5.1)
[2017-09-05] MEDS: MORPHINE SULFATE INJ 4 MG/ML DISP.SYRIN IV PRN ×2 (07:40→14:43)
[2017-09-05 08:00] VITALS: BP 139/85
[2017-09-05] MEDS: ASPIRIN 81 MG TAB.CHEW PO SCH (08:18)
[2017-09-05] MEDS: VANCOMYCIN 500 MG in IV D5W 100 ML IV SCH (08:18)
[2017-09-05] MEDS: EMTRICITABINE/TENOFOVIR 1 TAB PO SCH (08:19)
[2017-09-05] MEDS: AMIODARONE HCL 200 MG TABLET PO SCH ×2 (08:19→15:03)
[2017-09-05] MEDS: RITONAVIR 100 MG CAPSULE PO SCH (08:19)
[2017-09-05] MEDS ORDERED: WARFARIN SODIUM 5 MG TABLET PO SCH (09:52)
--- NOTE | 2017-09-05 10:05 | NUR ---
RN INITIAL NOTES RN RECEIVED PATIENT IN BED RESTING, A/OX4. NO ACUTE DISTRESS, NO SOB. DENIES PAIN OR DISCOMFORT. IV SITE INTACT AND PATENT. PT STED PAIN MEDICATION ADMINSTERED PER PATIENT REQUEST. SAFETY MEASURES IN PLACE. BED IN LOCKED AND LOWEST POSITION, SIDERAILS UPX2, CALL LIGHT IN REACH. RN WILL CONTINUE TO MONITOR PT THROUGHOUT THE DAY
[2017-09-05] MEDS ORDERED: ENOXAPARIN SODIUM 60 MG/0.6 ML DISP.SYRIN SQ SCH (10:30)
[2017-09-05] MEDS ORDERED: POTASSIUM CHLORIDE 20 MEQ TAB.PRT.SR PO SCH (11:30)
--- NOTE | 2017-09-05 12:48 | NUR ---
RN NOTE RN AWAITING UPDATED PT INR LEVEL TO ADMINISTER COUMADIN PO.
[2017-09-05 13:19] LABS: INR 1.15 (0.87-1.13)
[2017-09-05] MEDS ORDERED: WARF5TAB77 PO (14:34)
[2017-09-05] MEDS ORDERED: AMIO200T7 PO (14:34)
[2017-09-05] MEDS: oxyCODONE IR immediate release 5 MG PO PRN (14:42)
[2017-09-05 15:03] VITALS: BP 130/82
--- NOTE | 2017-09-05 15:44 | NUR ---
rn note patient discharge without issues , patient discharge pictures taken patient remains in no acute distress , patient double lumen removed with out issue , occlusive dressing applied , discharge paper work reviewed and given to patient , chan Joaquin wheeled patient out with caregiver , charge nurse notified. patient belonging ensured
== END 2017-09-05 15:48 | disposition home health service (06) | DRG 853 ==
LOC: ER 16:53 → ICU 23:28 → TELE 08-31 11:27 → MED 09-01 08:36 → TELE-TD 09-01 16:14 → TELE1 09-03 13:04 → MEDSG1 09-04 10:12
PROVIDERS: ADMIT Nurse Practitioner Acute Care; ATTEND Nurse Practitioner Acute Care
PROC: 06HM33Z Insertion of Infusion Device into Right Femoral Vein, Percutaneous Approach (ICD-10-PCS; 2017-08-29)
PROC: B54BZZA Ultrasonography of Right Lower Extremity Veins, Guidance (ICD-10-PCS; 2017-08-29)
PROC: 0BBJ8ZX Excision of Left Lower Lung Lobe, Via Natural or Artificial Opening Endoscopic, Diagnostic (ICD-10-PCS; principal; 2017-09-04)
DX: A41.9 Sepsis, unspecified organism (principal); I21.4 Non-ST elevation (NSTEMI) myocardial infarction; N17.0 Acute kidney failure with tubular necrosis; J18.9 Pneumonia, unspecified organism; E46 Unspecified protein-calorie malnutrition; I11.0 Hypertensive heart disease with heart failure; E87.2 Acidosis; I95.9 Hypotension, unspecified; E87.1 Hypo-osmolality and hyponatremia; I50.30 Unspecified diastolic (congestive) heart failure; N39.0 Urinary tract infection, site not specified; J98.11 Atelectasis; C34.32 Malignant neoplasm of lower lobe, left bronchus or lung; J93.9 Pneumothorax, unspecified; E11.9 Type 2 diabetes mellitus without complications; R65.20 Severe sepsis without septic shock; R59.0 Localized enlarged lymph nodes; E86.1 Hypovolemia; Z95.2 Presence of prosthetic heart valve; K21.9 Gastro-esophageal reflux disease without esophagitis; J44.9 Chronic obstructive pulmonary disease, unspecified; E78.5 Hyperlipidemia, unspecified; F17.210 Nicotine dependence, cigarettes, uncomplicated; M54.9 Dorsalgia, unspecified; G89.29 Other chronic pain; I48.91 Unspecified atrial fibrillation; E05.90 Thyrotoxicosis, unspecified without thyrotoxic crisis or storm; D63.8 Anemia in other chronic diseases classified elsewhere; E88.09 Other disorders of plasma-protein metabolism, not elsewhere classified; Z68.21 Body mass index [BMI] 21.0-21.9, adult; Z79.891 Long term (current) use of opiate analgesic
CPT/HCPCS: 36415; 36600; 71045-TC; 71250-TC; 78582; 80048-TC; 80053-TC; 80061-TC; 80076-TC; 80202-TC; 81000-TC; 82803-TC; 83605-TC; 83735-TC; 84100-TC; 84439-TC; 84443-TC; 84484-TC; 85025-TC; 85027-TC; 85610-TC; 85730-TC; 86360; 87040-TC; 87081-TC; 87086-TC; 88305-TC; 88342; 93307-TC; 94799-TC; A4606; A6402; A9567; C1751; C9113; J0282; J1160; J1644; J1650; J2250; J2270; J2310; J2405; J2543; J3010; J3370; J3475; J3480; J3490; J7030; J7040; J7050; J7060; Z7610